=== PATIENT | female | born 1935 | race Caucasian/White ===

== ENCOUNTER 2020-10-31 03:00 | Inpatient (IN) | payer OTHER, SELFPAY ==
[~2020-10-31] VITALS: Ht 152.4 cm; Wt 78.0 kg
--- NOTE | 2020-10-31 03:00 | NUR ---
84 Y/O FEMALE BIBA FROM [facility] DUE TO ALOC. PT ON NON-REBREATHER MASK 15LPM, UNABLE TO OBTAIN O2 SAT. PT NON-RESPONSIVE EVEN TO PAIN, PUPILS ARE NON-REACTIVE. SKIN IS CLAMMY AND COLD. PT WITH MULTIPLE BRUISES AND BLISTERS. PT WITH BRIGIDO PICC LINE, LEAKING. PT HOOKED TO MONITOR. BP 81/60, VT 65, RR 15, TEMP 85. KAYLEIGH HUGGER PLACED. SAFETY MEASURES IN PLACE. WILL CONTINUE TO MONITOR. PMH: HTN, CHF, COPD, AFIB, HERNIA REPAIR, CARDIOMYOPATHY ALLERGY: METRONIDAZOLE
[2020-10-31] MEDS ORDERED: DEXT 5% / NACL 0.9% 500 ML IV ONE (03:25)
[2020-10-31] MEDS ORDERED: LORazepam 2 MG/ML VIAL IVP ONE (03:25)
[2020-10-31] MEDS ORDERED: MORPHINE SULFATE 4 MG/ML SYR IVP ONE (03:25)
[2020-10-31] MEDS ORDERED: ONDANSETRON 4 MG/2 ML VIAL IVP ONE (03:25)
--- NOTE | 2020-10-31 03:30 | NUR ---
UNABLE TO OBTAIN IV ACCESS. MD AT BEDSIDE PLACING IO ACCESS.
[2020-10-31] MEDS ORDERED: WARF-92 PO (03:56)
[2020-10-31] MEDS ORDERED: METO-485 PO (03:56)
[2020-10-31] MEDS ORDERED: METO25TE2 PO (03:56)
[2020-10-31] MEDS ORDERED: ATRMDI IH (03:56)
[2020-10-31] MEDS ORDERED: MAGN400S60 PO (03:56)
[2020-10-31] MEDS ORDERED: PANT40EC PO (03:56)
--- NOTE | 2020-10-31 04:17 | NUR ---
PT BLOOD SUGAR 20. ERMD AWARE. NO NEW ORDERS. WILL CONTINUE TO MONITOR.
--- NOTE | 2020-10-31 05:11 | NUR ---
BLOOD SUGAR 28. MD AWARE. NO ORDERS RECEIVED. WILL CONTINUE TO MONITOR.
[2020-10-31] MEDS ORDERED: DOPPLER MC ONE ×2 (05:38→09:23)
--- NOTE | 2020-10-31 05:53 | NUR ---
UNABLE TO FEEL RADIAL, BRACHIAL, FEMORAL AND CAROTID PULSE. MADE AWARE. MD AT BEDSIDE WITH ULTRASOUND. HEART BEAT CONFIRMED. HR 60BPM. PT CURRENTLY WITH SHALLOW BREATHING. UNABLE TO OBTAIN O2 SAT. WILL CONTINUE TO MONITOR. Addendum: 10/31/20 at 0558 by [email or web address] UNABLE TO OBTAIN BLOOD PRESSURE
--- NOTE | 2020-10-31 06:00 | NUR ---
TOOK PICTURES OF WOUNDS. MULTIPLE BLISTERS ALL OVER BODY. PICTURES OF BLE, RIGHT HEEL, SACRAL, AND LEFT FOREARM.
--- NOTE | 2020-10-31 06:30 | NUR ---
RECEIVED TEXT BACK FROM DR. LUJAN REGARDING BS OF 28. DOCTOR STATED TO RECHECK BS IN AN HOUR. WILL ENDORSE TO DAY SHIFT NURSE.
--- NOTE | 2020-10-31 06:53 | NUR ---
VS WERE TAKEN. UNABLE TO GET A BP READING AFTER MULTIPLE ATTEMPTS. Addendum: 10/31/20 at 0656 by CHARLES TEMP 86. KAYLEIGH YUN STILL IN PLACE. UNABLE TO OBTAIN O2 SAT. PT ON NON-REBREATHER MASK. PT WITH AGONAL BREATHING.
--- NOTE | 2020-10-31 07:11 | NUR ---
ENDORSED PT TO DAY SHIFT NURSE FOR CONTINUITY OF CARE.
--- NOTE | 2020-10-31 07:12 | NUR ---
Received report from AL Galindo and AL Tomlin. Transfer of care at this time.
--- NOTE | 2020-10-31 07:15 | NUR ---
PICC LINE REMOVED. NO BLEEDING OBSERVED. GAUZE WITH PRESSURE APPLIED.
--- NOTE | 2020-10-31 07:36 | NUR ---
Spoke with AL Hannah for pending admission to Tele 122B, ETA 10minutes.
--- NOTE | 2020-10-31 07:50 | NUR ---
Patient admitted from ED to room 122B via [facility]. Report received from ED nurse Tran. Patient transferred from [facility] to bed with 2-person total assist. Left lower leg IO access intact with D5NS @ 100ml/hr. Patient is non-responsive with agonal breaths @ 6breaths/min, apical pulse inaudible, carotid and femoral pulses non-palpable, unable to obtain BP. Addendum: 10/31/20 at 1216 by Marian Mares RN Addendum: patient is SR @ 60/min on tele
[2020-10-31 07:57] VITALS: BP 51/13
--- NOTE | 2020-10-31 07:58 | NUR ---
Patient will be admitted to care of Dr. Shetty. Admited to TELEMETRY. Will go to room 122B. Belongings list completed. Report to AL Hannah.
--- NOTE | 2020-10-31 09:15 | NUR ---
Patient continue to have shallow agonal breaths @ 4/min, unable to obtain pulse and BP. Tele = SR @ 60/min.
--- NOTE | 2020-10-31 09:23 | NUR ---
Informed by brewery technician that patient is asystolic. Assessed patient, no breaths noted, unable to obtain BP, and pulse. Paged Dr. Shetty.
--- NOTE | 2020-10-31 09:27 | NUR ---
Dr. Harry Shetty at bedside pronounced patient's time of : [id number].
--- NOTE | 2020-10-31 09:40 | NUR ---
Managing Jeweler's office notification: Spoke to Jazz from the insurance sales producer's office ([phone]) to report patient's . Awaiting call back from deputy.
--- NOTE | 2020-10-31 09:45 | NUR ---
Spoke to son Mike Marin on the phone and notified of patient's . Son states he will come to see patient. Ok to visit per boiler house inspector
--- NOTE | 2020-10-31 09:50 | NUR ---
Called [facility] (Case#[id number]) and notified of patient's . Per intake, patient is eligible for organ donation, ok to release remains to mortuary once cleared by maintenance analyst.
--- NOTE | 2020-10-31 10:15 | NUR ---
Received call back from Deputy Mishra ([phone]) and notified of patient's . Per Deputy Mishra, no training director's case and ok to release remains to mortuary.
--- NOTE | 2020-10-31 10:30 | NUR ---
Aston Mckeon at bedside. Son authorized to release patient's remains to [facility].
--- NOTE | 2020-10-31 10:35 | NUR ---
Son Mike left unit at this time, he is thankful of staff for care provided. Informed Mike that [facility] will contact him for arrangements.
--- NOTE | 2020-10-31 10:40 | NUR ---
[facility] ([phone]) notified of patient's and family request for release of remains. ETA for pick-up is 2-3hours. Post-mortem care provided, LLE IO access removed.
--- NOTE | 2020-10-31 14:45 | NUR ---
[facility] picked up patient's remains at this time. No belongings present.
== END 2020-10-31 09:27 | DRG 640 ==
LOC: MED 03:00 → MTU 04:30
PROVIDERS: ADMIT Emergency Medicine; ATTEND Emergency Medicine
DX: E16.2 Hypoglycemia, unspecified (principal); G93.41 Metabolic encephalopathy; I42.9 Cardiomyopathy, unspecified; Z66 Do not resuscitate; Z51.5 Encounter for palliative care; J44.9 Chronic obstructive pulmonary disease, unspecified; Z20.822 Contact with and (suspected) exposure to COVID-19; I11.0 Hypertensive heart disease with heart failure; I50.9 Heart failure, unspecified; I48.91 Unspecified atrial fibrillation; I46.9 Cardiac arrest, cause unspecified; Z79.899 Other long term (current) drug therapy
CPT/HCPCS: 96361; 96374; 96375; 99291; 99292; J2060; J2270; J2405; J7042